=== PATIENT | female | born 1950 | race Caucasian/White ===

== ENCOUNTER → 2016-10-27 | Outpatient (CLI) | payer OTHER | LOC: BRMIMAGING 09:30 | PROVIDERS: ATTEND Internal Medicine Hematology & Oncology | DX: Z12.39 Encounter for other screening for malignant neoplasm of breast (principal); N63 Unspecified lump in breast; Z85.3 Personal history of malignant neoplasm of breast | CPT/HCPCS: 76641-PO; G0206 ==

== ENCOUNTER → 2017-08-11 | Outpatient (CLI) | payer OTHER | LOC: FIMAGING 10:10 | PROVIDERS: ATTEND Internal Medicine Hematology & Oncology | DX: Z12.31 Encounter for screening mammogram for malignant neoplasm of breast (principal); Z85.3 Personal history of malignant neoplasm of breast | CPT/HCPCS: G0202 ==

== ENCOUNTER 2018-08-03 01:21 | Emergency (ER) | payer OTHER ==
[2018-08-03] MEDS ORDERED: NS 1,000 ML IV ONE ×2 (01:44→01:51)
--- NOTE | 2018-08-03 01:44 | EDPHY ---
H & P Stated Complaint: FEVER,CHILLS,N/V,QUINN,BODY ACHES Time Seen by Provider: 08/03/18 01:44 HPI/ROS: HPI CHIEF COMPLAINT: "I have the flu" HISTORY OF PRESENT ILLNESS: 67-year-old female, history of AFib, hypertension, depression, presents emergency room stating that she feels like she has the flu. She reports that she had chills this evening the progressively gotten worse. Reports muscle aches, nausea but no vomiting. Denies coughing with productive cough, denies sore throat, denies ear pain, denies neck pain. Mild global headache. No meningeal signs. No focal numbness or tingling no focal weakness. No chest pain or shortness of breath no productive cough. Patient denies any chest pain, shortness of breath, abdominal pain. Main complaint nausea, muscle aches, feeling ill, chills. Past Medical History: AFib, hypertension, thyroid disease, anxiety, nonobstructive coronary disease Past Surgical History: No recent surgery Social History: Denies drugs alcohol tobacco. Family History: Noncontributory ROS REVIEW OF SYSTEMS: 10 Systems were reviewed and negative with the exception of the elements mentioned in the history of present illness. Exam Constitutional nontoxic triage nursing summary reviewed, vital signs reviewed, awake/alert. Vital signs are stable at triage. Eyes normal conjunctivae and sclera, EOMI, PERRLA. HENT posterior pharynx and TMs unremarkable, normal inspection, atraumatic, moist mucus membranes, no epistaxis, neck supple/ no meningismus, no raccoon eyes. Respiratory clear to auscultation bilaterally, normal breath sounds, no respiratory distress, no wheezing. Cardiovascular rate normal, regular rhythm, no murmur, no edema, distal pulses normal. Gastrointestinal soft, non-tender, no rebound, no guarding, normal bowel sounds, no distension, no pulsatile mass. Genitourinary no CVA tenderness. Musculoskeletal no midline vertebral tenderness, full range of motion, no calf swelling, no tenderness of extremities, no meningismus, good pulses, neurovascularly intact. Skin pink, warm, & dry, no rash, skin atraumatic. Neurologic awake, alert and oriented x 3, AAOx3, moves all 4 extremities equally, motor intact, sensory intact, CN II-XII intact, normal cerebellar, normal vision, normal speech. Psychiatric normal mood/affect. Heme/Lymph/Immune no lymphadenopathy. Differential Diagnosis: Includes but is not limited to in a particular order influenza, dehydration, viral syndrome, pneumonia, UTI, electrolyte disturbance Medical Decision Making: Plan for this patient IV establishment IV fluid bolus , basic blood work, chest x-ray, troponin Re-evaluation: 0418: Patient resting comfortably no acute distress. Patient feeling much better after IV fluids. She has not had a fever here. Her workup for chills, muscle aches, feeling ill and nausea is unremarkable here in the emergency room. She has no chest pain or shortness of breath. She states she feels much better after IV fluids and Phenergan. Vital signs are stable. Blood work reviewed no high white blood cell count. No fever here. Chest x- ray is unremarkable except for hiatal hernia no infiltrate. Flu test negative Urinalysis shows small bacteria I have cultured it, given her 1 g Rocephin just in case. Keflex prescription provided I also discussed return precautions with the patient she understands return emergency room she develops worsening symptoms includes high fever, vomiting, pain, not doing well. At time of discharge she feels much better no chest pain no shortness of breath no abdominal pain. Not vomiting. No diarrhea here. Return precautions discussed with her and her at bedside. They are comfortable going home. Chest x-ray two view shows hiatal hernia. But no dense infiltrate. Source: Patient - Personal History Current Tetanus Diphtheria and Acellular Pertussis (TDAP): No - Medical/Surgical History Hx Asthma: No Hx Chronic Respiratory Disease: No Hx Diabetes: No Hx Cardiac Disease: No Hx Renal Disease: No Hx Cirrhosis: No Hx Alcoholism: No Hx HIV/AIDS: No Hx Splenectomy or Spleen Trauma: No Other PMH: AFIB, HTN,ARTHRITIS, HYPOTHYROID,DEPRESSION, INSOMNIA - Social History Smoking Status: Never smoked Constitutional: Initial Vital Signs Temperature (C) 36.5 C 08/03/18 01:27 Heart Rate 84 08/03/18 01:27 Respiratory Rate 18 08/03/18 01:27 Blood Pressure 144/91 H 08/03/18 01:27 O2 Sat (%) 94 08/03/18 01:27 O2 Delivery Mode Room Air Allergies/Adverse Reactions: doxycycline Allergy (Verified 08/03/18 01:25) Erethromycin Allergy (Uncoded 08/03/18 01:25) Home Medications: Medication Instructions Recorded Aspirin 03/21/16 Cymbalta 03/21/16 LORAZEPAM 03/21/16 Metoprolol Tartrate 03/21/16 Metoprolol Tartrate [Lopressor 25 25 mg PO BID #60 tab 03/21/16 mg (*)] Flecainide Acetate 04/16/16 Cephalexin [Keflex] 500 mg PO Q6H #28 cap 08/03/18 Eliquis 08/03/18 Htn Med 08/03/18 Levothyroxine 08/03/18 Promethazine HCl 25 mg PO Q6-8PRN PRN #10 tablet 08/03/18 Medical Decision Making - Data Points Laboratory Results: Laboratory Results 08/03/18 02:04 08/03/18 02:04 08/03/18 08/03/18 08/03/18 03:35 02:26 02:04 WBC RBC Hgb Hct MCV MCH MCHC RDW Plt Count MPV Neut % (Auto) Lymph % (Auto) [place] % (Auto) Eos % (Auto) Baso % (Auto) Nucleat RBC Rel Count Absolute Neuts (auto) Absolute Lymphs (auto) Absolute Monos (auto) Absolute Eos (auto) Absolute Basos (auto) Absolute Nucleated RBC Immature Gran % Immature Gran # RBC/WBC/PLT Morphology Platelet Estimate Sodium Potassium Chloride Carbon Dioxide Anion Gap BUN Creatinine Estimated GFR Glucose Calcium Total Bilirubin Conjugated Bilirubin Unconjugated Bilirubin AST ALT Alkaline Phosphatase POC Troponin I 0.00 ng/mL ng/mL (0.00-0.08) Total Protein Albumin Lipase Urine Color YELLOW Urine Appearance CLEAR Urine pH 6.0 (5.0-7.5) Ur Specific [place] 1.017 (1.002-1.030) Urine Protein NEGATIVE (NEGATIVE) Urine Ketones NEGATIVE (NEGATIVE) Urine Blood NEGATIVE (NEGATIVE) Urine Nitrate NEGATIVE (NEGATIVE) Urine Bilirubin NEGATIVE (NEGATIVE) Urine Urobilinogen 2.0 EU H EU (0.2-1.0) Ur Leukocyte Esterase TRACE H (NEGATIVE) Urine RBC 5-10 /hpf H /hpf (0-3) Urine WBC 3-5 /hpf H /hpf (0-3) Ur Epithelial Cells TRACE /lpf /lpf (NONE-1+) Urine Mucus TRACE /lpf /lpf (NONE-1+) Urine Glucose NEGATIVE (NEGATIVE) Nasal Influenza A PCR NEGATIVE FOR FLU A (NEGATIVE) Nasal Influenza B PCR NEGATIVE FOR FLU B (NEGATIVE) 08/03/18 08/03/18 02:04 02:04 WBC 7.03 10^3/uL 10^3/uL (3.80-9.50) RBC 4.57 10^6/uL 10^6/uL (4.18-5.33) Hgb 13.7 g/dL g/dL (12.6-16.3) Hct 39.9 % % (38.0-47.0) MCV 87.3 fL fL (81.5-99.8) MCH 30.0 pg pg (27.9-34.1) MCHC 34.3 g/dL g/dL (32.4-36.7) RDW 12.9 % % (11.5-15.2) Plt Count 251 10^3/uL 10^3/uL (150-400) MPV 10.5 fL fL (8.7-11.7) Neut % (Auto) 91.7 % H % (39.3-74.2) Lymph % (Auto) 4.0 % L % (15.0-45.0) [place] % (Auto) 3.6 % L % (4.5-13.0) Eos % (Auto) 0.3 % L % (0.6-7.6) Baso % (Auto) 0.3 % % (0.3-1.7) Nucleat RBC Rel Count 0.0 % % (0.0-0.2) Absolute Neuts (auto) 6.45 10^3/uL 10^3/uL (1.70-6.50) Absolute Lymphs (auto) 0.28 10^3/uL L 10^3/uL (1.00-3.00) Absolute Monos (auto) 0.25 10^3/uL L 10^3/uL (0.30-0.80) Absolute Eos (auto) 0.02 10^3/uL L 10^3/uL (0.03-0.40) Absolute Basos (auto) 0.02 10^3/uL 10^3/uL (0.02-0.10) Absolute Nucleated RBC 0.00 10^3/uL 10^3/uL (0-0.01) Immature Gran % 0.1 % % (0.0-1.1) Immature Gran # 0.01 10^3/uL 10^3/uL (0.00-0.10) RBC/WBC/PLT Morphology TNP Platelet Estimate TNP Sodium 138 mEq/L mEq/L (135-145) Potassium 3.8 mEq/L mEq/L (3.5-5.2) Chloride 107 mEq/L mEq/L (97-110) Carbon Dioxide 25 mEq/l mEq/l (22-31) Anion Gap 6 mEq/L mEq/L (6-14) BUN 13 mg/dL mg/dL (7-23) Creatinine 0.6 mg/dL mg/dL (0.6-1.0) Estimated GFR > 60 Glucose 129 mg/dL H mg/dL (70-100) Calcium 8.7 mg/dL mg/dL (8.5-10.4) Total Bilirubin 0.5 mg/dL mg/dL (0.1-1.4) Conjugated Bilirubin 0.2 mg/dL mg/dL (0.0-0.5) Unconjugated Bilirubin 0.3 mg/dL mg/dL (0.0-1.1) AST 26 IU/L IU/L (14-46) ALT 30 IU/L IU/L (9-52) Alkaline Phosphatase 112 IU/L IU/L (38-126) POC Troponin I Total Protein 7.0 g/dL g/dL (6.3-8.2) Albumin 3.9 g/dL g/dL (3.5-5.0) Lipase 63 IU/L IU/L (23-300) Urine Color Urine Appearance Urine pH Ur Specific [place] Urine Protein Urine Ketones Urine Blood Urine Nitrate Urine Bilirubin Urine Urobilinogen Ur Leukocyte Esterase Urine RBC Urine WBC Ur Epithelial Cells Urine Mucus Urine Glucose Nasal Influenza A PCR Nasal Influenza B PCR Medications Given: Discontinued Medications Acetaminophen (Tylenol) 1,000 mg PO EDNOW ONE Stop: 08/03/18 01:52 Last Admin: 08/03/18 02:13 Dose: 1,000 mg Sodium Chloride (Ns) 1,000 mls @ 0 mls/hr IV EDNOW ONE; Wide Open PRN Reason: Protocol Stop: 08/03/18 01:45 Last Admin: 08/03/18 02:01 Dose: 1,000 mls Sodium Chloride (Ns) 1,000 mls @ 0 mls/hr IV ONCE ONE PRN Reason: Wide Open Stop: 08/03/18 01:52 Last Admin: 08/03/18 02:12 Dose: 1,000 mls Ceftriaxone Sodium/Dextrose (Rocephin 1 Gm (Premix)) 50 mls @ 100 mls/hr IV EDNOW ONE PRN Reason: Protocol Stop: 08/03/18 04:25 Last Admin: 08/03/18 04:00 Dose: 50 mls Promethazine HCl (Phenergan) 6.25 mg IVP ONCE ONE Stop: 08/03/18 01:53 Last Admin: 08/03/18 02:13 Dose: 6.25 mg Point of Care Test Results: Chemistry 08/03/18 02:26 POC Troponin I 0.00 ng/mL ng/mL (0.00-0.08) Departure - Departure Disposition: Home, Routine, Self-Care Clinical Impression: Dehydration UTI (urinary tract infection) Qualifiers: Urinary tract infection type: acute cystitis Hematuria presence: with hematuria Qualified Code(s): N30.01 - Acute cystitis with hematuria Condition: Good Instructions: Dehydration (ED), Urinary Tract Infection in Women (ED), Acute Nausea and Vomiting (ED), Viral Syndrome (ED) Additional Instructions: 1. Drink lots of fluids. 2. Rest. 3. Antibiotics as prescribed 4. Return emergency room if you have worsening symptoms includes fever, vomiting , not doing well. Referrals: NONE *PRIMARY CARE P,. [Primary Care Provider] - As per Instructions Prescriptions: Cephalexin [Keflex] 500 mg PO Q6H #28 cap Promethazine HCl 25 mg PO Q6-8PRN PRN #10 tablet PRN Reason: Nausea/Vomiting, Use 1st
[2018-08-03] MEDS ORDERED: ACETAMINOPHEN 500 MG TAB PO ONE (01:51)
[2018-08-03] MEDS ORDERED: PROMETHAZINE HCL 25 MG/ML INJ IVP ONE (01:52)
[2018-08-03 02:15] LABS: PLATELET COUNT 251 10^3/uL (150-400)
[2018-08-03 04:40] VITALS: BP 118/65
== END 2018-08-03 05:18 | disposition home or self-care (01) ==
DX: N30.01 Acute cystitis with hematuria (principal); E86.0 Dehydration
CPT/HCPCS: 84484-PO; 96365; J0696; J2550

== ENCOUNTER 2018-08-03 11:56 | Inpatient (IN) | payer OTHER ==
[2018-08-03] MEDS ORDERED: ACETAMINOPHEN 500 MG TAB ONE (12:09)
[2018-08-03 12:44] LABS: PLATELET COUNT 236 10^3/uL (150-400)
[2018-08-03] MEDS ORDERED: ONDANSETRON 4 MG/2 ML VIAL IVP ONE (12:48)
[2018-08-03] MEDS ORDERED: NS 1,000 ML IV ONE (12:48)
[2018-08-03] MEDS ORDERED: KETOROLAC 30 MG/1 ML SDV IVP ONE (12:50)
[2018-08-03] MEDS ORDERED: PANTOPRAZOLE SODIUM 40 MG VIAL IVP ONE (12:50)
--- NOTE | 2018-08-03 12:50 | EDPHY ---
H & P Stated Complaint: Here during night;still sick Time Seen by Provider: 08/03/18 12:40 HPI/ROS: CHIEF COMPLAINT: Vomiting and diarrhea HISTORY OF PRESENT ILLNESS: The patient is a 67-year-old female who is here at 1:00 a.m. Complaining of flu-like symptoms. She had lab work that was reassuring including a negative flu swab. She had a chest x-ray that revealed hiatal hernia. She comes back this afternoon complaining that she has vomited 3 times and had 2 episodes of diarrhea. Her diarrhea has not been bloody or dark but she states that her vomit has been black. She does take Eliquis for history of atrial fibrillation. No fevers. No focal weakness. No headache. No chest pain or shortness of breath. She does describe epigastric pain but states that it is not feel like heartburn. Severity: Moderate Modifying factors: None REVIEW OF SYSTEMS: Constitutional: See HPI EENTM: denies: blurred vision, double vision, nose congestion Respiratory: denies: cough, shortness of breath Cardiac: denies: chest pain, irregular heart rate, lightheadedness, palpitations Gastrointestinal/Abdominal: See HPI Genitourinary: denies: dysuria, frequency, hematuria, pain Musculoskeletal: denies: joint pain, muscle pain Skin: denies: lesions, rash, jaundice, bruising Neurological: denies: headache, numbness, paresthesia, tingling, dizziness, weakness Hematologic/Lymphatic: denies: blood clots, easy bleeding, easy bruising Immunologic/allergic: denies: HIV/AIDS, transplant 10 systems reviewed and negative except as noted EXAM: GENERAL: Well-appearing, somewhat anxious, well-nourished and in no acute distress. HEAD: Atraumatic, normocephalic. EYES: Pupils equal round and reactive to light, extraocular movements intact, sclera anicteric, conjunctiva are normal. ENT: TMs normal, nares patent, oropharynx clear without exudates. Moist mucous membranes. NECK: Normal range of motion, supple without lymphadenopathy or JVD. LUNGS: Breath sounds clear to auscultation bilaterally and equal. No wheezes rales or rhonchi. HEART: Regular rate and rhythm without murmurs, rubs or gallops. ABDOMEN: Soft, nontender, normoactive bowel sounds. No guarding, no rebound. No masses appreciated. Rectal exam performed, stool appears nonbloody. Sent to lab for testing. BACK: No CVA tenderness, no spinal tenderness, step-offs or deformities EXTREMITIES: Normal range of motion, no pitting or edema. No clubbing or cyanosis. NEUROLOGICAL: Cranial nerves II through XII grossly intact. Normal speech, normal gait. 5/5 strength, normal movement in all extremities, normal sensation , normal reflexes PSYCH: Normal mood, normal affect. SKIN: Warm, dry, normal turgor, no visible rashes or lesions. Source: Patient, Family Exam Limitations: No limitations - Personal History Current Tetanus Diphtheria and Acellular Pertussis (TDAP): Yes - Medical/Surgical History Hx Asthma: No Hx Chronic Respiratory Disease: No Hx Diabetes: No Hx Cardiac Disease: No Hx Renal Disease: No Hx Cirrhosis: No Hx Alcoholism: No Hx HIV/AIDS: No Hx Splenectomy or Spleen Trauma: No Other PMH: AFIB, HTN,ARTHRITIS, HYPOTHYROID,DEPRESSION, INSOMNIA - Family History Significant Family History: No pertinent family hx - Social History Smoking Status: Never smoked Alcohol Use: Sober Drug Use: None Constitutional: Initial Vital Signs Temperature (C) 36.6 C 08/03/18 12:00 Heart Rate 88 08/03/18 12:00 Respiratory Rate 18 08/03/18 12:00 Blood Pressure 153/91 H 08/03/18 12:00 O2 Sat (%) 95 08/03/18 12:00 O2 Delivery Mode Room Air Allergies/Adverse Reactions: doxycycline Allergy (Verified 08/03/18 12:08) Erethromycin Allergy (Uncoded 08/03/18 01:25) Home Medications: Medication Instructions Recorded DULoxetine [Cymbalta 30 MG (*)] 30 mg PO BID 03/21/16 LORazepam [Ativan (*)] 0.5 mg PO HS 03/21/16 Metoprolol Tartrate [Lopressor 25 25 mg PO BID #60 tab 03/21/16 mg (*)] Flecainide Acetate [Tambocor] 100 mg PO BID 04/16/16 Apixaban [Eliquis] 5 mg PO BID 08/03/18 Betamethasone/Propylene Glyc 1 gm TP DAILY PRN 08/03/18 [Betamethasone Dp Aug 0.05% Crm] Cephalexin [Keflex] 500 mg PO Q6H #28 cap 08/03/18 Herbals/Supplements -Info Only 1 ea PO DAILY 08/03/18 Levothyroxine [Synthroid 50 mcg 50 mcg PO DAILY06 08/03/18 (*)] Promethazine HCl 25 mg PO Q6 PRN 08/03/18 amLODIPine BESYLATE [Norvasc 5 mg 5 mg PO DAILY 08/03/18 (*)] Medical Decision Making - Diagnostics Imaging Results: Imaging Impressions Abdomen CT 08/03/18 12:49 Impression: Moderate size hiatal hernia; otherwise negative CT examination of the abdomen and pelvis. Results called to Dr. Clemente at 2:00 PM. Imaging: Discussed imaging studies w/ director broadcast Radiologist ED Course/Re-evaluation: 2:10 p.m. I discussed the case with hospital service will admit to Dr. Bardales. Her lab work is thus far reassuring. Will recommend that she held her Eliquis for now. Differential Diagnosis: Partial list of the Differential diagnosis considered include but were not limited to; gastritis, upper GI bleed, peptic ulcer disease and although unlikely based on the history and physical exam, I also considered hemorrhage, ischemia, pancreatitis. - Data Points Laboratory Results: Laboratory Results 08/03/18 12:20 08/03/18 12:20 08/03/18 08/03/18 08/03/18 13:10 12:55 12:30 WBC RBC Hgb Hct MCV MCH MCHC RDW Plt Count MPV Neut % (Auto) Lymph % (Auto) [place] % (Auto) Eos % (Auto) Baso % (Auto) Nucleat RBC Rel Count Absolute Neuts (auto) Absolute Lymphs (auto) Absolute Monos (auto) Absolute Eos (auto) Absolute Basos (auto) Absolute Nucleated RBC Immature Gran % Seg Neutrophils % Band Neutrophils % Lymphocytes % Monocytes % Eosinophils % Basophils % Metamyelocytes % Myelocytes % Promyelocytes % Blast Cells % Immature Gran # Absolute Seg Neuts Absolute Band Neuts Absolute Lymphocytes Absolute Monocytes Absolute Eosinophils Absolute Basophils Absolute Metamyelocyte Absolute Myelocytes Absolute Promyelocytes Absolute Plasma Cells Nucleated RBCs Absolute Blast Cells Plasma Cells % Platelet Estimate Sodium Potassium Chloride Carbon Dioxide Anion Gap BUN Creatinine Estimated GFR Glucose Calcium Total Bilirubin 0.4 mg/dL mg/dL (0.1-1.4) Conjugated Bilirubin 0.2 mg/dL mg/dL (0.0-0.5) Unconjugated Bilirubin 0.2 mg/dL mg/dL (0.0-1.1) AST 39 IU/L IU/L (14-46) ALT 39 IU/L IU/L (9-52) Alkaline Phosphatase 94 IU/L IU/L (38-126) Total Protein 6.3 g/dL g/dL (6.3-8.2) Albumin 3.5 g/dL g/dL (3.5-5.0) Lipase 45 IU/L IU/L (23-300) TSH 2.800 uIU/mL uIU/mL (0.465-4.680) Free T4 1.13 ng/dL ng/dL (0.59-2.19) Urine Color YELLOW Urine Appearance CLEAR Urine pH 5.0 (5.0-7.5) Ur Specific [place] 1.026 (1.002-1.030) Urine Protein NEGATIVE (NEGATIVE) Urine Ketones 1+ H (NEGATIVE) Urine Blood NEGATIVE (NEGATIVE) Urine Nitrate NEGATIVE (NEGATIVE) Urine Bilirubin NEGATIVE (NEGATIVE) Urine Urobilinogen NEGATIVE EU EU (0.2-1.0) Ur Leukocyte Esterase NEGATIVE (NEGATIVE) Urine RBC NONE SEEN /hpf /hpf (0-3) Urine WBC 5-10 /hpf H /hpf (0-3) Ur Epithelial Cells TRACE /lpf /lpf (NONE-1+) Urine Mucus TRACE /lpf /lpf (NONE-1+) Urine Glucose NEGATIVE (NEGATIVE) Stool Occult Bld Scrn POSITIVE H (NEGATIVE) 08/03/18 08/03/18 12:20 12:20 WBC 4.89 10^3/uL 10^3/uL (3.80-9.50) RBC 4.48 10^6/uL 10^6/uL (4.18-5.33) Hgb 13.5 g/dL g/dL (12.6-16.3) Hct 39.6 % % (38.0-47.0) MCV 88.4 fL fL (81.5-99.8) MCH 30.1 pg pg (27.9-34.1) MCHC 34.1 g/dL g/dL (32.4-36.7) RDW 12.6 % % (11.5-15.2) Plt Count 236 10^3/uL 10^3/uL (150-400) MPV 10.4 fL fL (8.7-11.7) Neut % (Auto) Not Reported Lymph % (Auto) Not Reported [place] % (Auto) Not Reported Eos % (Auto) Not Reported Baso % (Auto) Not Reported Nucleat RBC Rel Count Not Reported Absolute Neuts (auto) Not Reported Absolute Lymphs (auto) Not Reported Absolute Monos (auto) Not Reported Absolute Eos (auto) Not Reported Absolute Basos (auto) Not Reported Absolute Nucleated RBC Not Reported Immature Gran % Not Reported Seg Neutrophils % 78.0 % % Band Neutrophils % 11.0 % % Lymphocytes % 6.0 % % Monocytes % 5.0 % % Eosinophils % 0.0 % % Basophils % 0.0 % % Metamyelocytes % 0.0 % % Myelocytes % 0.0 % % Promyelocytes % 0.0 % % Blast Cells % 0.0 % % Immature Gran # Not Reported Absolute Seg Neuts 3.81 10^3/uL 10^3/uL (1.70-6.50) Absolute Band Neuts 0.54 10^3/uL 10^3/uL (0.00-0.70) Absolute Lymphocytes 0.29 10^3/uL L 10^3/uL (1.00-3.00) Absolute Monocytes 0.24 10^3/uL L 10^3/uL (0.30-0.80) Absolute Eosinophils 0.00 10^3/uL L 10^3/uL (0.03-0.40) Absolute Basophils 0.00 10^3/uL L 10^3/uL (0.02-0.10) Absolute Metamyelocyte 0.00 10^3/mL 10^3/mL (0.00-0.00) Absolute Myelocytes 0.00 10^3/mL 10^3/mL (0.00-0.00) Absolute Promyelocytes 0.00 10^3/uL 10^3/uL (0.00-0.00) Absolute Plasma Cells 0.00 10^3/uL 10^3/uL (0.00-0.00) Nucleated RBCs 0 /100 WBC /100 WBC (0-0) Absolute Blast Cells 0.00 10^3/uL 10^3/uL (0.00-0.00) Plasma Cells % 0.0 % % Platelet Estimate ADEQUATE (ADEQ) Sodium 138 mEq/L mEq/L (135-145) Potassium 3.5 mEq/L mEq/L (3.5-5.2) Chloride 110 mEq/L mEq/L (97-110) Carbon Dioxide 21 mEq/l L mEq/l (22-31) Anion Gap 7 mEq/L mEq/L (6-14) BUN 13 mg/dL mg/dL (7-23) Creatinine 0.5 mg/dL L mg/dL (0.6-1.0) Estimated GFR > 60 Glucose 114 mg/dL H mg/dL (70-100) Calcium 8.6 mg/dL mg/dL (8.5-10.4) Total Bilirubin Conjugated Bilirubin Unconjugated Bilirubin AST ALT Alkaline Phosphatase Total Protein Albumin Lipase TSH Free T4 Urine Color Urine Appearance Urine pH Ur Specific [place] Urine Protein Urine Ketones Urine Blood Urine Nitrate Urine Bilirubin Urine Urobilinogen Ur Leukocyte Esterase Urine RBC Urine WBC Ur Epithelial Cells Urine Mucus Urine Glucose Stool Occult Bld Scrn Medications Given: Discontinued Medications Sodium Chloride (Ns) 1,000 mls @ 0 mls/hr IV EDNOW ONE; Wide Open PRN Reason: Protocol Stop: 08/03/18 12:49 Last Admin: 08/03/18 13:00 Dose: 1,000 mls Ketorolac Tromethamine (Toradol) 15 mg IVP EDNOW ONE Stop: 08/03/18 12:51 Last Admin: 08/03/18 13:01 Dose: 15 mg Ondansetron HCl (Zofran) 4 mg IVP EDNOW ONE Stop: 08/03/18 12:49 Last Admin: 08/03/18 13:03 Dose: 4 mg Pantoprazole Sodium (Protonix) 80 mg IVP EDNOW ONE Stop: 08/03/18 12:51 Last Admin: 08/03/18 13:04 Dose: 80 mg Departure - Departure Disposition: [facility] Clinical Impression: Upper GI bleeding, Hiatal hernia Condition: Fair
[2018-08-03] MEDS ORDERED: IOPAMIDOL (ISOVUE-300) 100 ML BTL ONE (13:04)
[2018-08-03] MEDS ORDERED: HYDROmorphONE/DILAUDID 1 MG/ML INJ IVP PRN (16:13)
[2018-08-03] MEDS ORDERED: ACETAMINOPHEN 325 MG TAB PO PRN (16:13)
[2018-08-03] MEDS ORDERED: PROMETHAZINE HCL 25 MG/ML INJ IVP PRN (16:15)
[2018-08-03] MEDS ORDERED: PROMETHAZINE HCL 25 MG TAB PO PRN (16:15)
[2018-08-03] MEDS ORDERED: NS 1,000 ML IV SCH (16:15)
[2018-08-03] MEDS: oxyCODONE IR 5 MG TAB PO PRN ×2 (17:40→20:43)
--- NOTE | 2018-08-03 18:38 | GHP ---
DATE OF ADMISSION: 08/03/2018 CHIEF COMPLAINT: Myalgias, nausea, vomiting, diarrhea. HISTORY OF PRESENT ILLNESS: This is a 67-year-old female who was in her usual state of health until yesterday when she started developing myalgia and fatigue. She also had chills, but no fever. 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 Her flu swab was negative . She went home and then started developing some epigastric abdominal pain which was quite severe. She then had nausea and vomiting and is now having diarrhea. Her abdominal pain is little better wit h pain medicine currently. She still feels myalgias and overall fatigue. She does not usually have a history of GERD. She did have 1 emesis that was black in color, but no overt blood. REVIEW OF SYSTEMS: A 10-point review of systems was obtained and was negative. PAST MEDICAL HISTORY: 1. Atrial fibrillation. 2. Depression and anxiety. 3. Hypothyroidism. 4. Hypertension. MEDICATIONS: Reviewed. SOCIAL HISTORY: No smoking or alcohol. FAMILY HISTORY: Reviewed and noncontributory. PHYSICAL EXAMINATION: VITAL SIGNS: Afebrile. Blood pressure is 139/84, heart rate 92, oxygen satur ation 95% on room air. GENERAL: The patient is well developed, in no apparent distress. HEENT: No nicteric sclerae. Extraocular muscles intact. Moist mucous membranes. NECK: Supple. No thyromega ly. LUNGS: Good effort. Clear to auscultation bilaterally. CARDIOVASCULAR: Regular rate and rhyt hm. No murmurs or gallops. ABDOMEN: Positive bowel sounds. Mild epigastric tenderness. No reboun d or guarding. EXTREMITIES: No clubbing, cyanosis, or edema. SKIN: Without rash. Dry, intact. N EUROLOGIC: Alert and oriented x3. Moving all 4 extremities equally. PSYCH: Normal affect. LABS: CBC is completely normal. Chemistries normal. LFTs are normal. Lipase is normal. UA is nor mal. Stool was positive for occult blood. CT scan of the abdomen and pelvis shows a moderate hiatal hernia, but otherwise normal. ASSESSMENT: This is a 67-year-old female, presenting with a viral gastroenteritis. PLAN: 1. Gastroenteritis. Will continue antiemetics and IV fluids. 2. Epigastric abdominal pain. I think this is due to an infection. I do not think that her hiatal hernia is causing this. We will continue to monitor. 3. One episode of black emesis, could be bile. She does have guaiac-positive stools, although it is hard to interpret with significant diarrhea. We will continue to monitor blood counts and how she f eels. 4. Atrial fibrillation. I am going to hold her Eliquis due to possible, but less likely, bleeding. /[id number]/MODL
[2018-08-03] MEDS: METOPROLOL TARTRATE 25 MG TAB PO SCH (20:42)
[2018-08-03] MEDS: FLECAINIDE ACETATE 100 MG TAB PO SCH (20:42)
[2018-08-03] MEDS: DULoxetine 30 MG CAP PO SCH (20:42)
[2018-08-03] MEDS: LORazepam 0.5 MG TAB PO SCH (20:42)
[2018-08-04 05:08] LABS: PLATELET COUNT 184 10^3/uL (150-400)
[2018-08-04] MEDS: LEVOTHYROXINE 50 MCG TAB PO SCH (05:22)
[2018-08-04] MEDS ORDERED: PROTOCOL POTASSIUM 1 DOSE MISC PRN (07:34)
[2018-08-04] MEDS ORDERED: POTASSIUM CL 10 MEQ TAB PO ONE (07:48)
[2018-08-04] MEDS: FLECAINIDE ACETATE 100 MG TAB PO SCH ×2 (08:17→20:41)
[2018-08-04] MEDS: METOPROLOL TARTRATE 25 MG TAB PO SCH ×2 (08:17→20:41)
[2018-08-04] MEDS: amLODIPine BESYLATE 5 MG TAB PO SCH (08:17)
[2018-08-04] MEDS: DULoxetine 30 MG CAP PO SCH ×2 (08:17→20:41)
--- NOTE | 2018-08-04 11:14 | HOSPPROG ---
Hospitalist Progress Note Assessment/Plan: Jeannine Davis is a 67-year-old female, presenting with a viral gastroenteritis. * Gastroenteritis. -much improved w hydration -no further having nausea, no diarrhea, no vomiting * Epigastric abdominal pain -much improved -PPI *hypokalemia -added protocol * One episode of black emesis, + guaiac-positive stools -vss, should get f/u * Atrial fibrillation -Eliquis on hold -in sinus during my evaluation *Plan: will re-evaluate her this afternoon, advance her diet. If eating and drinking; will dc Subjective: Jeannine is feeling much improved since yesterday, no further abdominal pain. Objective: Vital Signs Temp Pulse Resp BP Pulse Ox 36.7 C 91 16 144/85 H 94 08/04/18 08:00 08/04/18 08:00 08/04/18 08:00 08/04/18 08:00 08/04/18 08:00 Laboratory Results 08/04/18 04:31 08/04/18 04:31 08/03/18 08/04/18 08/05/18 05:59 05:59 05:59 Intake Total 1688 Output Total 425 650 Balance 1263 -650 - Physical Exam Constitutional: no apparent distress, appears nourished, not in pain Eyes: PERRL Ears, Nose, Mouth, Throat: hearing normal Cardiovascular: regular rate and rhythym Respiratory: no respiratory distress Gastrointestinal: normoactive bowel sounds, soft, non-tender abdomen Skin: warm Musculoskeletal: full muscle strength Neurologic: AAOx3 Psychiatric: interacting appropriately ICD10 Worksheet Patient Problems: Problems Problem Status Onset Hiatal hernia Acute Upper GI bleeding Acute Atrial fibrillation with rapid ventricular response Acute Urinary tract infection Acute
[2018-08-04] MEDS ORDERED: PANTOPRAZOLE SODIUM 40 MG TAB PO ONE (11:23)
--- NOTE | 2018-08-04 11:45 | ASMTLACE ---
NETTE Comorbidities - select Answers: Other Notes: A all that apply fib; HTN; hypothyroidis m # of Emergency department Answers: 1-2 visits in the last 6 months Social determinants Answers: Mental health diagnosis (anxiety, depression, pers onality disorders, etc.) Score: 5 Date Signed: 08/04/2018 11:45 AM Electronically Signed By:Swati Barber RN
--- NOTE | 2018-08-04 11:46 | ASMTCMCOM ---
CM Note CM Note Notes: Patient admitted for viral gastroenteritis and possible GI bleed. She is being treated supportively. She is normally independent and lives with her . No discharge needs anticipated. CM available if this changes. Current CM Discharge plan: home independent Date Signed: 08/04/2018 11:46 AM Electronically Signed By:Swati Barber RN
[2018-08-04] MEDS: LORazepam 0.5 MG TAB PO SCH (20:41)
[2018-08-04] MEDS ORDERED: POTASSIUM CL 20 MEQ TAB PO ONE (20:46)
[2018-08-05] MEDS: LEVOTHYROXINE 50 MCG TAB PO SCH (05:28)
[2018-08-05 08:27] LABS: PLATELET COUNT 202 10^3/uL (150-400)
[2018-08-05] MEDS: amLODIPine BESYLATE 5 MG TAB PO SCH (09:09)
[2018-08-05] MEDS: FLECAINIDE ACETATE 100 MG TAB PO SCH ×2 (09:09→19:41)
[2018-08-05] MEDS: METOPROLOL TARTRATE 25 MG TAB PO SCH ×2 (09:09→19:41)
[2018-08-05] MEDS: DULoxetine 30 MG CAP PO SCH ×2 (09:09→19:42)
[2018-08-05] MEDS ORDERED: POTASSIUM CL 10 MEQ TAB PO ONE (09:11)
--- NOTE | 2018-08-05 11:33 | HOSPPROG ---
Hospitalist Progress Note Assessment/Plan: Jeannine Davis is a 67-year-old female, presenting with a viral gastroenteritis. * Gastroenteritis, Norovirus. -much improved w hydration -had multiple episodes of diarrhea last night, none today * Epigastric abdominal pain -much improved -PPI *hypokalemia -added protocol *afib w rvr -occurred when I was evaluating her and she converted back to sinus after vagal - now in sinus * One episode of black emesis, + guaiac-positive stools -vss, should get f/u * Atrial fibrillation -resume Eliquis *Plan: dc later today if she continues to feel well Subjective: Jeannine is feeling much better today. Objective: Vital Signs Temp Pulse Resp BP Pulse Ox 36.5 C 88 18 119/73 94 08/05/18 08:27 08/05/18 08:27 08/05/18 08:27 08/05/18 08:27 08/05/18 08:27 Microbiology 08/05/18 01:44 Gastrointestinal Tract Panel (PCR) - Final Stool Norovirus Gi/Gii Laboratory Results 08/05/18 08:20 08/05/18 08:20 08/04/18 08/05/18 08/06/18 05:59 05:59 05:59 Intake Total 1688 625 Output Total 425 1650 Balance 1263 -1025 - Physical Exam Constitutional: no apparent distress Eyes: PERRL Ears, Nose, Mouth, Throat: hearing normal Cardiovascular: irregularly irregular, tachycardia Respiratory: no respiratory distress Skin: warm, normal color Musculoskeletal: full muscle strength Neurologic: AAOx3 Psychiatric: interacting appropriately ICD10 Worksheet Patient Problems: Problems Problem Status Onset Hiatal hernia Acute Upper GI bleeding Acute Atrial fibrillation with rapid ventricular response Acute Urinary tract infection Acute
[2018-08-05] MEDS: APIXABAN 5 MG TAB PO SCH ×2 (11:48→19:42)
[2018-08-05] MEDS ORDERED: METOPROLOL TARTRATE 5 MG/5 ML INJ IVP ONE (11:53)
[2018-08-05] MEDS ORDERED: NS W/ 20 KCl/L 1,000 ML IV SCH (12:15)
--- NOTE | 2018-08-05 16:07 | GHP ---
DATE OF ADMISSION: 08/03/2018 REASON FOR CONSULT: Rapid heart rate. HISTORY OF PRESENT ILLNESS: The patient was admitted to the hospital August 03, 2018, due to increa sing fatigue and flu-like symptoms. She had noted abdominal discomfort and experienced nausea, vomit ing, and diarrhea. She was admitted for hydration and was found to be positive for rotavirus. Today , it was noted that her heart rate suddenly increased to 120 and then again increased to 140 beats pe r minute and at times, bradycardia episodes were noted. At time of my visit she states she is feelin g better. She has been hydrating more. Her EKG that was done through the noon hour was reviewed with Dr. Vinnie Hardwick, showing atrial tachycardia with a rate of 140. Upon my arrival for this visit, her heart rate was 85 with episodes of premature atrial contractions on the shipping specialist. She is feeling much better and was otherwise asymptomatic with the heart rate changes. PAST MEDICAL HISTORY: She has a history of anxiety, atrial fibrillation, coronary artery disease of the [place] coronary arteries, depression, hypertension, SVT, personal history of breast cancer. PAST SURGICAL HISTORY: Appendectomy, bunionectomy, hysterectomy, knee replacement, lumpectomy, rotat or cuff repair. HOME MEDICATIONS: Amlodipine 5 mg daily, Cymbalta 30 mg delayed release capsule twice daily, Eliquis 5 mg twice daily, flecainide 100 mg every 12 hours, levothyroxine 50 mcg once daily, lorazepam 0.5 m g at bedtime. Metoprolol tartrate 25 mg twice daily. ALLERGIES: No known drug allergies. SOCIAL HISTORY: She does live at home. She has never used alcohol, illicit substances, or tobacco a buse. REVIEW OF SYSTEMS: All systems are normal except as stated in HPI. PHYSICAL EXAMINATION: VITAL SIGNS: Blood pressure 133/82, heart rate 84 with PACs. CONSTITUTIONAL: Well-nourished, well-developed individual. HEENT: Eyes conjunctivas normal. Sclerae white. Ears, n ose, and throat, ears appear normal with no lesions. NECK: No JVP, no masses, tenderness. Trachea i s midline. RESPIRATORY: Breathing is nonlabored. LUNGS: Sounds are normal bilaterally. No wheezes , rales, or rhonchi. CARDIOVASCULAR: Heart rate is regular. Normal apical impulse. EXTREMITIES: No edema and warm. ABDOMEN: Nontender to palpation. MUSCULOSKELETAL: No joint tenderness to palpation . SKIN: No rashes. Skin is warm. MENTAL STATUS: Oriented to person, place, and time. Fund of know ledge within normal limits. Motor exam, tone normal with no abnormal movements. PSYCHIATRIC: Mood a nd affect is normal. Affect is appropriate. EKG on 08/05/2018, showed a sinus tachycardia with a rate of 140. ASSESSMENT: 1. Atrial tachycardia likely related to anxiety and probable dehydration. Recommend continued hydra tion. Once her diarrhea is better controlled, this will reduce her fluid loss. 2. Paroxysmal atrial fibrillation history. She remains on Eliquis for cerebrovascular accident prop hylaxis. She is on flecainide for her paroxysmal atrial fibrillation history. Would continue all cu rrent medications. 3. No further cardiac evaluation is necessary at this time. This consult was reviewed with Vero Beyer, nurse practitioner with hospitalist. Thank you for asking us to be a part of this patient's care. Please call if symptoms worsen or persist. /[id number]/MODL
[2018-08-05] MEDS: METOPROLOL TARTRATE 5 MG/5 ML INJ IVP ONE ×2 (16:18→16:32)
--- NOTE | 2018-08-05 16:18 | CPEKG ---
Test Reason : OPEN Blood Pressure : / mmHG Vent. Rate : 141 BPM Atrial Rate : 219 BPM P-R Int : 106 ms QRS Dur : 088 ms QT Int : 310 ms P-R-T Axes : 000 -01 -60 degrees QTc Int : 475 ms Atrial fibrillation Nonspecific repol abnrm, anterolateral leads Confirmed by Gamaliel Crespo ([id number]) on 08/05/2018 4:18:32 PM Referred By: Confirmed By:Gamaliel Crespo
[2018-08-05] MEDS ORDERED: METOPROLOL TARTRATE 5 MG/5 ML INJ ONE (19:11)
--- NOTE | 2018-08-05 19:12 | PDMN ---
Medical Necessity Medical necessity: MCG : M575 ventricular arrhythmias A-2 days: pt initially came in with myalgia's, N/V/D, fatigue, chills, suspect gastroenteritis, pt now with afib with rvr, , HR 140's as well as bradycardic episodes in the 40's, pt transferred to PCU and status changed to INPT 08/05/18 for ongoing med nec care > 2 MN needing further eval, monitoring and tx.
[2018-08-05] MEDS: LORazepam 0.5 MG TAB PO SCH (19:41)
[2018-08-05] MEDS ORDERED: DILTIAZEM 25 MG/5 ML VIAL IVP ONE (19:45)
[2018-08-05] MEDS ORDERED: POTASSIUM CL 20 MEQ TAB PO ONE (20:32)
[2018-08-06] MEDS: amLODIPine BESYLATE 5 MG TAB PO SCH (09:09)
[2018-08-06] MEDS: DULoxetine 30 MG CAP PO SCH (09:09)
[2018-08-06] MEDS: METOPROLOL TARTRATE 25 MG TAB PO SCH (09:12)
[2018-08-06] MEDS: APIXABAN 5 MG TAB PO SCH (09:12)
[2018-08-06] MEDS: LEVOTHYROXINE 50 MCG TAB PO SCH (09:12)
[2018-08-06] MEDS: FLECAINIDE ACETATE 100 MG TAB PO SCH (09:13)
--- NOTE | 2018-08-06 09:14 | HOSPPROG ---
Hospitalist Progress Note Assessment/Plan: Jeannine Davis is a 67-year-old female, presenting with a viral gastroenteritis. * Gastroenteritis, Norovirus. -had multiple episodes of diarrhea last night -continue iv hydration * Epigastric abdominal pain -much improved -PPI *hypokalemia -added protocol -IV fluids have added potassium * One episode of black emesis, + guaiac-positive stools -vss, should get f/u * Atrial fibrillation w RVR (this morning in sinus) -on flecainide and metoprolol-had heart rate in the low 200's last night -will monitor her today and if improves; dc later -resume Eliquis *Plan: dc later today if she continues to feel well & heart rate is in control Subjective: Jeannine said she slept well and is feeling fine. Objective: Vital Signs Temp Pulse Resp BP Pulse Ox 36.6 C 101 H 19 119/84 H 96 08/06/18 03:48 08/06/18 03:48 08/06/18 03:48 08/06/18 03:48 08/06/18 03:48 Laboratory Results 08/06/18 05:35 08/05/18 08/06/18 08/07/18 05:59 05:59 05:59 Intake Total 1700 Output Total 1 Balance 1699 - Physical Exam Constitutional: no apparent distress, appears nourished, not in pain Eyes: PERRL Ears, Nose, Mouth, Throat: hearing normal Cardiovascular: regular rate and rhythym, No tachycardia Respiratory: no respiratory distress Gastrointestinal: normoactive bowel sounds Skin: warm Musculoskeletal: full muscle strength Neurologic: AAOx3, other (sleepy) Psychiatric: interacting appropriately ICD10 Worksheet Patient Problems: Problems Problem Status Onset Hiatal hernia Acute Upper GI bleeding Acute Atrial fibrillation with rapid ventricular response Acute Urinary tract infection Acute
--- NOTE | 2018-08-06 10:52 | PDCARPN ---
Cardiology Progress Note Assessment/Plan: Assessment: Paroxysmal Tachy arrhythmias Paroxysmal A Fib Norovirus-- Had Nausea, vomiting previously and diarrhea. The past couple days diarrhea especially during night. Dehydration likely the cause of her tachy-arrhythmias. She remains asymptomatic. Plan: No medication changes. Advised to keep hydrated all day and during the night when she awakens. She will follow up with Dr Lombardo September 06 2018 at 2:30. 08/06/18 10:46 Subjective: I get anxious dueing the night when up with diarrhea. Otherwise asymptomatic to rapid heart rates. Reviewed/Discussed With: hospitalist, multidisciplinary team Time Spent with Patient: greater than 25 minutes Time Spent with Patient: Greater than 25 minutes spent on this patients care, greater than 50% of time spent counseling, educating, and coordinating care regarding the above mentioned plan. Objective: Vital Signs (8 Hrs) Temp Pulse Resp BP Pulse Ox 08/06/18 09:12 63 124/67 H 08/06/18 09:10 36.5 C 63 17 124/67 H 98 08/06/18 09:09 124/67 H 08/06/18 03:48 36.6 C 101 H 19 119/84 H 96 Intake/Output (24 Hrs) 08/05/18 08/06/18 08/07/18 05:59 05:59 05:59 Intake Total 1700 Output Total 1 Balance 1699 Intake: Oral (ml) 200 IV Infused (ml) 1500 NS W/ 20 KCl/L 1,000 ml @ 1500 125 mls/hr IV CONT DEREJE Rx#:[id number] Output: Liquid Stool (ml) 1 Incontinence 1 Other: Number of Voids Toilet 2 Number of Stools Incontinence 1 Result Diagrams: 08/05/18 08:20 08/06/18 05:35 - Physical Exam Constitutional: no apparent distress Cardiovascular: no murmurs, no rubs, no gallops, other (regular irregularity) Respiratory: clear to auscultate bilat, no crackles, no wheezes Neurologic: AAOx3 Psychiatric: cooperative, interactive ICD10 Worksheet Patient Problems: Problems Problem Status Onset Atrial fibrillation with rapid ventricular response Acute Urinary tract infection Acute Upper GI bleeding Acute Hiatal hernia Acute
[2018-08-06 12:18] VITALS: BP 120/84
--- NOTE | 2018-08-06 13:39 | GDS ---
DISCHARGE DIAGNOSES: 1. Norovirus, viral gastroenteritis. 2. Epigastric abdominal pain. 3. Hypokalemia. 4. One episode of black emesis and a positive guaiac stool. 5. Atrial fibrillation with rapid ventricular response. CONSULTATIONS: During her stay, Maile Brown. HISTORY: Briefly, the patient was admitted on August 03 due to increased fatigue and flu-like sympt oms. It was noted that she had norovirus. She had episodes of tachycardia, with her heart rate rang ing from 140, as high as up to the low 200s last night. She is transferred to the PCU floor. She im proved with IV hydration and being on electrolyte protocol. Today, she is feeling markedly better. She will be discharged home with followup with Cardiology and with her PCP. HOSPITAL COURSE: 1. Norovirus. Supportive care. Recommending good handwashing and staying home until her symptoms r esolve. 2. Epigastric abdominal pain, resolved. 3. Hypokalemia, on protocol. 4. One episode of black emesis and positive guaiac stool. Further followup with her PCP. 5. Atrial fibrillation with RVR. She has been in sinus today. DISCHARGE CONDITION: Stable. Blood pressure is 120/84, heart rate of 72, respiratory rate of 19. O 2 saturations on 2 L are 96%. Temperature is 36.8 Celsius. DISCHARGE MEDICATIONS: Please see the EMR. DISCHARGE INSTRUCTIONS: 1. To stay home until her diarrhea resolves. 2. Good handwashing. 3. If her diarrhea returns, try the BRAT diet and also to stay well hydrated, take Pedialyte or Rick rade. /[id number]/MODL
--- NOTE | 2018-08-06 21:26 | ASDISCHSUM ---
Discharge Information Plan Status:Home with No Needs Medically Cleared to Leave:08/05/2018 Discharge Date:08/05/2018 CM D/C Disposition:Home, Routine, Self-Care ADT D/C Disposition: Projected Discharge Date:08/05/2018 Transportation at D/C:Family Discharge Delay Reason: Follow-Up Date:08/05/2018 Discharge Slot: Final Diagnosis: Placement Information Patient Contact Information Contact Name:YURIDIA Relationship: Address:[address] City:[place] Alternate Phone: State/Zip Code:[place] [address] Email: Financial Information Financial Class:HMO and PPO Plans Primary Plan Desc:[employer] Primary Plan Number:[id number] Secondary Plan Desc: Secondary Plan Number: Assessment Information LACE LACE Comorbidities - select Answers: Other Notes: A all that apply fib; HTN; hypothyroidis m # of Emergency department Answers: 1-2 visits in the last 6 months Social determinants Answers: Mental health diagnosis (anxiety, depression, pers onality disorders, etc.) Score: 5 Date Signed: 08/04/2018 11:45 AM Electronically Signed By:Swati Barber RN [facility] CM Progress Note CM Note CM Note Notes: Patient admitted for viral gastroenteritis and possible GI bleed. She is being treated supportively. She is normally independent and lives with her . No discharge needs anticipated. CM available if this changes. Current CM Discharge plan: home independent Date Signed: 08/04/2018 11:46 AM Electronically Signed By:Swati Barber RN Case Management Discharge Plan Note Case Management Discharge Discharge Order Complete? Answers: Yes Patient to Obtain Answers: via Family Medications Transportation Arranged Answers: Family/Friends Discharge Comments Notes: 08/06/2018 Case Management Note Case Management d/c poc: independent with follow up as directed. Date Signed: 08/06/2018 01:56 PM Electronically Signed By:Giuliana Castorena RN Intervention Information
--- NOTE | 2018-08-06 21:32 | ASMTDCNOTE ---
Case Management Discharge Discharge Order Complete? Answers: Yes Patient to Obtain Answers: via Family Medications Transportation Arranged Answers: Family/Friends Discharge Comments Notes: 08/06/2018 Case Management Note Case Management d/c poc: independent with follow up as directed. Date Signed: 08/06/2018 01:56 PM Electronically Signed By:Giuliana Castorena RN
== END 2018-08-06 14:06 | disposition home or self-care (01) | DRG 392 ==
LOC: F3E 14:47 → F2W 08-05 17:45 → OBSVTOIN 08-05 18:59
PROVIDERS: ADMIT Internal Medicine; ATTEND Internal Medicine
DX: A08.11 Acute gastroenteropathy due to Norwalk agent (principal); I48.91 Unspecified atrial fibrillation; R19.5 Other fecal abnormalities; E87.6 Hypokalemia; E03.9 Hypothyroidism, unspecified; I10 Essential (primary) hypertension; I25.10 Atherosclerotic heart disease of native coronary artery without angina pectoris; F41.8 Other specified anxiety disorders; Z79.01 Long term (current) use of anticoagulants; Z96.659 Presence of unspecified artificial knee joint; Z85.3 Personal history of malignant neoplasm of breast
CPT/HCPCS: 96374; G0378; J1170; J1885; J2405; Q9967

== ENCOUNTER → 2018-09-14 | Outpatient (CLI) | payer OTHER | LOC: FIMAGING 10:10 | PROVIDERS: ATTEND Internal Medicine Hematology & Oncology | DX: Z12.31 Encounter for screening mammogram for malignant neoplasm of breast (principal); Z85.3 Personal history of malignant neoplasm of breast ==